=== PATIENT | male | born 1965 | race Caucasian/White ===

== ENCOUNTER 2019-11-28 12:58 | Emergency (ER) | payer SELFPAY ==
--- OUTSIDE RECORDS SUMMARY | 2019-11-28 13:00 | XMS REPORT | Continuity of Care Document ---
:[address] [facility] t Address [address] [place] [address] Care Team Providers Name Role Phone Katina NOLAND Attending Clinician Problems This patient has no known problems. Allergies, Adverse Reactions, Alerts This patient has no known allergies or adverse reactions. Medications This patient has no known medications. Procedures This patient has no known procedures. Encounters Start End Encounter Admission Attending Care Care Encounter Source Date/Time Date/Time Type Type Clinicians Facility Department ID 2019-05-24 2019-05-24 Office RENETTA Ambriz [id number] 13:26:29 14:32:08 Visit Santa [id number] MEDICINE [id number] [facility] [phone] [address] Results This patient has no known results.
--- NOTE | 2019-11-28 13:59 | EDPHYS ---
Physician Documentation [facility] Name: Yehuda Jackson Jr Age: 54 yrs Sex: Male : 1965 Arrival Date: 11/28/2019 Time: 13:01 Bed 6 Private MD: ED Physician Freddie Becerril HPI: 11/27 13:48 This 54 yrs old Male presents to ER via Ambulatory with complaints of Wound jr8 Infection. 13:48 The patient presents with swelling. The complaints affect the right foot. Onset: The jr8 symptoms/episode began/occurred gradually, 1 week(s) ago. Modifying factors: The symptoms are alleviated by nothing, the symptoms are aggravated by nothing. Associated signs and symptoms: The patient has no apparent associated signs or symptoms. Severity of symptoms: At their worst the symptoms were moderate, in the emergency department the symptoms are unchanged. The patient has not experienced similar symptoms in the past. The patient has not recently seen a physician. Patient stated that he is diabetic and has peripheral neuropathy. Noticed small wound on right third toe that is progressing and getting red. Denies fevers. Historical: - Allergies: 13:11 No Known Allergies; ca1 - Home Meds: 13:11 Trulicity subcutaneous subcutaneous [Active]; Metformin Oral [Active]; Glipizide Oral ca1 [Active]; - PMHx: 13:11 Diabetes - NIDDM; ca1 - PSHx: 13:11 None; ca1 - Immunization history:: Adult Immunizations up to date. - Social history:: Smoking status: Patient denies any tobacco usage or history of. ROS: 13:48 Eyes: Negative for injury, pain, redness, and discharge, ENT: Negative for injury, jr8 pain, and discharge, Neck: Negative for injury, pain, and swelling, Cardiovascular: Negative for chest pain, palpitations, and edema, Respiratory: Negative for shortness of breath, cough, wheezing, and pleuritic chest pain, Abdomen/GI: Negative for abdominal pain, nausea, vomiting, diarrhea, and constipation, Back: Negative for injury and pain, Neuro: Negative for headache, weakness, numbness, tingling, and seizure. 13:48 MS/extremity: Positive for erythema, swelling, warmth, of the right foot. Exam: 13:48 Constitutional: This is a well developed, well nourished patient who is awake, alert, jr8 and in no acute distress. Cardiovascular: Regular rate and rhythm with a normal S1 and S2. No gallops, murmurs, or rubs. Normal PMI, no JVD. No pulse deficits. Respiratory: Lungs have equal breath sounds bilaterally, clear to auscultation and percussion. No rales, rhonchi or wheezes noted. No increased work of breathing, no retractions or nasal flaring. Skin: Warm, dry with normal turgor. Normal color with no rashes, no lesions, and no evidence of cellulitis. Neuro: Awake and alert, GCS 15, oriented to person, place, time, and situation. Cranial nerves II-XII grossly intact. Motor strength 5/5 in all extremities. Sensory grossly intact. Cerebellar exam normal. Normal gait. 13:48 Musculoskeletal/extremity: Extremities: grossly normal except: noted in the third toe right foot: erythema, swelling, mild exudative discharge noted, ROM: intact in all extremities, Circulation is intact in all extremities. decreased sensation. Vital Signs: 13:08 BP 108 / 58; Pulse 94; Resp 17 S; Temp 98.6(O); Pulse Ox 97% on R/A; Weight 124.74 kg ca1 (R); Height 6 ft. 0 in. (182.88 cm); 13:38 BP 130 / 56; Pulse 87; Resp 17; Pulse Ox 97% ; bp 14:25 BP 104 / 43; Pulse 86; Resp 16; Temp 98; Pulse Ox 99% ; bp 13:08 Body Mass Index 37.30 (124.74 kg, 182.88 cm) ca1 MDM: 13:06 Patient medically screened. [facility] 13:48 Data reviewed: vital signs, nurses notes, and as a result, I will discharge patient. [facility] Data interpreted: Pulse oximetry: on room air is 97 %. Interpretation: normal. 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 ED course: Patient will be on dual Abx therapy for next several days. Close return precautions given along with strict f/u with podiatry. If he cannot get in or worse to immediately come back for in patient therapy . 11/27 13:28 Order name: I\T\D Setup; Complete Time: 13:36 jr8 Administered Medications: No medications were administered Disposition: 15:18 Co-signature as Attending Physician, Freddie Becerril MD. rn Disposition: 11/28/19 13:58 Discharged to Home. Impression: Cellulitis of right toe. - Condition is Stable. - Discharge Instructions: Cellulitis, Adult. - Prescriptions for Keflex 500 mg Oral Capsule - take 1 capsule by ORAL route every 6 hours for 10 days; 40 capsule. Bactrim DS 800- 160 mg Oral Tablet - take 1 tablet by ORAL route every 12 hours for 10 days; 20 tablet. - Medication Reconciliation Form, Thank You Letter, Antibiotic Education, Prescription Opioid Use form. - Follow up: Kurt Arciniega DPM; When: 1 - 2 days; Reason: Wound Recheck, Recheck today's complaints, Continuance of care, Re-evaluation by your physician. - Problem is new. - Symptoms have improved. Signatures: Freddie Becerril MD MD rn Jules Ellis PA PA jr8 Brad Wynne RN RN bp Jacquie Marcum RN RN ca1 Corrections: (The following items were deleted from the chart) 14:28 13:58 11/28/2019 13:58 Discharged to Home. Impression: Cellulitis of right toe. bp Condition is Stable. Forms are Medication Reconciliation Form, Thank You Letter, Antibiotic Education, Prescription Opioid Use. Follow up: Kurt Arciniega; When: 1 - 2 days; Reason: Wound Recheck, Recheck today's complaints, Continuance of care, Re-evaluation by your physician. Problem is new. Symptoms have improved. jr8
--- NOTE | 2019-11-28 13:59 | ER ---
Nurse's Notes [facility] Name: Yehuda Jackson Jr Age: 54 yrs Sex: Male : 1965 Arrival Date: 11/28/2019 Time: 13:01 Bed 6 Private MD: Diagnosis: Cellulitis of right toe Presentation: 11/27 13:08 Chief complaint: Patient states: Red, swollen appears infected 3rd toe of the R foot x ca1 over a week. Denies pain. Reports decrease pain sensation on both lower extremities for a while now because of diabetes, so did not notice toe till today. Coronavirus screen: Client denies travel out of the [place] in the last 14 days. At this time, the client does not indicate any symptoms associated with coronavirus-19. Ebola Screen: Patient negative for fever greater than or equal to 101.5 degrees Fahrenheit, and additional compatible Ebola Virus Disease symptoms Patient denies exposure to infectious person. Patient denies travel to an Ebola-affected area in the 21 days before illness onset. No symptoms or risks identified at this time. Initial Sepsis Screen: Does the patient meet any 2 criteria? No. Patient's initial sepsis screen is negative. Does the patient have a suspected source of infection? No. Patient's initial sepsis screen is negative. Risk Assessment: Do you want to hurt yourself or someone else? Patient reports no desire to harm self or others. Onset of symptoms was November 28, 2019. 13:08 Method Of Arrival: Ambulatory ca1 13:08 Acuity: ARACELI 4 ca1 Triage Assessment: 13:10 General: Appears in no apparent distress. comfortable, Behavior is calm, cooperative, bp appropriate for age. Pain: Denies pain. EENT: No deficits noted. Neuro: No deficits noted. Cardiovascular: No deficits noted. Respiratory: No deficits noted. GI: No signs and/or symptoms were reported involving the gastrointestinal system. : No signs and/or symptoms were reported regarding the genitourinary system. Derm: Abscess located on right foot. Musculoskeletal: No deficits noted. Historical: - Allergies: 13:11 No Known Allergies; ca1 - Home Meds: 13:11 Trulicity subcutaneous subcutaneous [Active]; Metformin Oral [Active]; Glipizide Oral ca1 [Active]; - PMHx: 13:11 Diabetes - NIDDM; ca1 - PSHx: 13:11 None; ca1 - Immunization history:: Adult Immunizations up to date. - Social history:: Smoking status: Patient denies any tobacco usage or history of. Screenin:10 Abuse screen: Denies threats or abuse. Denies injuries from another. Nutritional bp screening: No deficits noted. Tuberculosis screening: No symptoms or risk factors identified. Fall Risk None identified. Assessment: 13:10 General: SEE TRIAGE NOTE. bp 13:42 Reassessment: I\T\D SETUP AT B/S FOR LMP. bp 14:26 Reassessment: PT D/C HOME AMBULATORY, DX WITH DIABETIC FOOT WOUND. bp Vital Signs: 13:08 BP 108 / 58; Pulse 94; Resp 17 S; Temp 98.6(O); Pulse Ox 97% on R/A; Weight 124.74 kg ca1 (R); Height 6 ft. 0 in. (182.88 cm); 13:38 BP 130 / 56; Pulse 87; Resp 17; Pulse Ox 97% ; bp 14:25 BP 104 / 43; Pulse 86; Resp 16; Temp 98; Pulse Ox 99% ; bp 13:08 Body Mass Index 37.30 (124.74 kg, 182.88 cm) ca1 ED Course: 13:01 Patient arrived in ED. ag5 13:02 Brad Wynne, REJI is Primary Nurse. bp 13:06 Jules Ellis PA is PHCP. jr8 13:06 Freddie Becerril MD is Attending Physician. jr8 13:10 Triage completed. ca1 13:10 Patient has correct armband on for positive identification. Bed in low position. Call bp light in reach. Side rails up X2. 13:11 Arm band placed on right wrist. ca1 13:57 Kurt Arciniega DPM is Referral Physician. jr8 14:26 No provider procedures requiring assistance completed. Patient did not have IV access bp during this emergency room visit. Wound care: to DIABETIC located on right foot was cleaned with dressed with Neosporin, Patient tolerated well. Administered Medications: No medications were administered Outcome: 13:58 Discharge ordered by . jr8 14:26 Discharged to home ambulatory. bp 14:26 Condition: stable 14:26 Discharge instructions given to patient, Instructed on discharge instructions, follow up and referral plans. medication usage, Demonstrated understanding of instructions, follow-up care, medications, Prescriptions given X 2. 14:28 Patient left the ED. bp Signatures: Jules Ellis PA PA jr8 Brad Wynne RN RN Jacquie Small RN RN ca1 Ethel Patricio ag5
[2019-11-28 14:39] VITALS: BP 104/43; TEMP 98; O2SAT 99
== END 2019-11-28 14:28 | disposition home or self-care (01) ==
LOC: ER 12:58
DX: L03.031 Cellulitis of right toe (principal); E11.42 Type 2 diabetes mellitus with diabetic polyneuropathy; Z79.4 Long term (current) use of insulin
CPT/HCPCS: 99283